=== PATIENT | female | born 1945 | race Caucasian/White ===

== ENCOUNTER → 2016-08-20 | Outpatient (CLI) | payer MEDICARE, OTHER ==
--- NOTE | 2016-08-20 15:35 | RAD ---
Bone densitometry scan, 08/20/2016: History: Postmenopausal screening The lumbar spine and right hip were examined utilizing a DEXA technique. The bone mineral density in the lumbar spine as measured from the L1-L4 levels is 1.08 g/sq cm. This yields a T score of -0.9 which is in the normal range. On 07/01/2011 the lumbar spine T score was -1.3. The total T score at the right hip is -1.7, compatible with osteopenia. The right hip T score on the 07/01/2011 exam was -1.3. IMPRESSION: 1. Osteopenia at the right hip which has worsened since 07/01/2011. 2. Osteopenia in the lumbar spine evident on the previous study has improved, although hypertrophic degenerative change could be elevating the current lumbar spine measurements.
== END | disposition home or self-care (01) ==
LOC: DXRAD 14:33
PROVIDERS: ATTEND Nurse Practitioner Family
DX: M85.80 Other specified disorders of bone density and structure, unspecified site (principal)
CPT/HCPCS: 77080

== ENCOUNTER → 2017-03-11 | Outpatient (CLI) | payer MEDICARE, OTHER ==
--- NOTE | 2017-03-11 09:38 | RAD ---
Left foot, 3 views, 03/11/2017: History: Foot pain The bony structures are demineralized. There is moderate degenerative change at the first MTP joint. There are mild degenerative changes at scattered interphalangeal joints. No fracture or dislocation is identified. There is a small inferior calcaneal spur. There is moderate subcutaneous edema along the plantar surface of the heel. Aortic calcific plaquing is noted. IMPRESSION: 1. Demineralization. 2. Scattered degenerative changes. 3. No acute bony abnormality is detected.
== END | disposition home or self-care (01) ==
LOC: DXRADRC 09:02
PROVIDERS: ATTEND Physician Assistant
DX: M19.072 Primary osteoarthritis, left ankle and foot (principal); M77.32 Calcaneal spur, left foot; M25.872 Other specified joint disorders, left ankle and foot; I70.0 Atherosclerosis of aorta
CPT/HCPCS: 73630

== ENCOUNTER → 2021-08-14 | Outpatient (CLI) | payer MEDICARE, OTHER ==
--- NOTE | 2021-08-15 15:42 | RAD ---
INDICATION: 75 years of age asymptomatic female patient presents for screening mammography. TECHNIQUE: Full field craniocaudal and mediolateral oblique images of both breasts were obtained usi ng digital technique with tomosynthesis and also analyzed with computer-aided detection software. COMPARISON: 07/13/2020. BREAST COMPOSITION: Category A: The breasts are predominantly fatty. FINDINGS: No suspicious masses, microcalcifications or architectural distortion is present to suggest malignanc y in either breast. The visualized axillae are unremarkable. IMPRESSION: No mammographic evidence of malignancy. RECOMMENDATION: Annual screening mammography is recommended, unless clinically indicated sooner based on symptoms or change in physical exam. BIRADS 1: NEGATIVE This study was interpreted with the benefit of Computerized Aided Detection (CAD). Patient information is entered into the reminder system with a target due date for the next screening mammogram. Mammography is the most sensitive method for finding small breast cancers, but it does not detect the m all and is not a substitute for careful clinical examination. A negative mammogram does not negate a clinically suspicious finding and should not result in delay in biopsying a clinically suspicious a bnormality. "Our facility is accredited by the [employer] Mammography Program." Electronically signed by: Pk Bell MD (08/15/2021 3:40 PM) [id number] BIRADS 0-6
== END ==
LOC: MAMMO 07:41
PROVIDERS: ATTEND Physician Assistant Medical
DX: Z12.31 Encounter for screening mammogram for malignant neoplasm of breast (principal)
CPT/HCPCS: 77063; 77067